=== PATIENT | female | born 1955 | race Caucasian/White ===

== ENCOUNTER 2021-07-19 06:45 | Emergency (ER) | payer MEDICARE, BC ==
--- NOTE | 2021-07-19 06:59 | EDM.PDOC ---
ED HPI GENERAL MEDICAL PROBLEM - General Chief Complaint: Back Pain or Injury Stated Complaint: FAll, low back pain Time Seen by Provider: 07/19/21 06:45 Source of Information: Reports: Patient, EMS History Limitations: Reports: Other (hard of hearing) - History of Present Illness INITIAL COMMENTS - FREE TEXT/NARRATIVE: Patient presents via EMS for slip and fall and low back pain. She is visiting from [place], [place] with her . Her daughter lives here. She was going down carpeted stairs and slipped and fell down 2-3 steps. She fell onto her buttocks and had significant pain. She has chronic low back pain, gets injections every 3 months and is due for one. EMS arrived and she was unable to ambulate. No numbness or tingling, no radiation. Pain in the low back, chronic neck pain, not anything new. Was removed via Stairchair. IV was started and she was given dilaudid 1 mg IVP and valium 5 mg IVP. On baclofen chronically. No other injuries or pain. Onset: Today Location: Reports: Back low back Pain Score (Numeric/FACES): 6 - Related Data Allergies Allergy/AdvReac Type Severity Reaction Status Date / Time aspirin Allergy Wheezing Verified 07/19/21 07:11 Home Meds: Home Meds ALPRAZolam [Xanax] 0.5 mg PO TID 07/19/21 [History] Acetaminophen 1,000 mg PO Q6HR PRN 07/19/21 [History] Acetaminophen/HYDROcodone [HYDROcodone-Acetaminophen 5-325 MG *] 1 tab PO Q6H PRN #30 each 07/19/21 [Rx] Baclofen 10 mg PO TID PRN 07/19/21 [History] DULoxetine [Cymbalta] 30 mg PO DAILY 07/19/21 [History] Furosemide [Lasix] 10 mg PO DAILY 07/19/21 [History] Loratadine [Claritin] 10 mg PO DAILY 07/19/21 [History] Losartan/Hydrochlorothiazide [Losartan-HCTZ 100-25 MG] 1 each PO DAILY 07/19/21 [History] Omeprazole 20 mg PO DAILY 07/19/21 [History] Oxybutynin Chloride [Ditropan Xl] 10 mg PO DAILY 07/19/21 [History] Potassium Chloride 10 meq PO DAILY 07/19/21 [History] Venlafaxine [Effexor XR] 150 mg PO DAILY 07/19/21 [History] Past Medical History Cardiovascular History: Reports: Hypertension Gastrointestinal History: Reports: Colon Polyp, Other (See Below) (colon polyps) Genitourinary History: Reports: Other (See Below) (overactive bladder) Musculoskeletal History: Reports: Back Pain, Chronic (chronic lumbar with SHIRLEY every 3 months), Neck Pain, Chronic (fusion cervical spine), Other (See Below) (right AC joint arthritis, right RC tendonitis/pain) Psychiatric History: Reports: Depression Endocrine/Metabolic History: Reports: Hypothyroidism - Past Surgical History HEENT Surgical History: Reports: Adenoidectomy, Cataract Surgery, Tonsillectomy GI Surgical History: Reports: Cholecystectomy, Colonoscopy Female Surgical History: Reports: Breast Biopsy, Tubal Ligation Neurological Surgical History: Reports: C-Spine (fusion) Musculoskeletal Surgical History: Reports: Knee Replacement (left) Social & Family History - Tobacco Use Tobacco Use Status *Q: Unknown Ever Used Tobacco - Alcohol Use Alcohol Use in Last Twelve Months: Yes Alcohol Use Frequency: Weekly - Recreational Drug Use Recreational Drug Use: No Drug Use in Last 12 Months: No ED ROS GENERAL - Review of Systems Review Of Systems: See Below Constitutional: Reports: No Symptoms. Denies: Fever, Chills, Fatigue HEENT: Reports: No Symptoms. Denies: Rhinitis, Sinus Problem, Throat Pain, Throat Swelling Respiratory: Reports: No Symptoms. Denies: Wheezing, Cough, Sputum Cardiovascular: Reports: No Symptoms. Denies: Chest Pain, Palpitations, Syncope Endocrine: Reports: No Symptoms. Denies: Fatigue GI/Abdominal: Reports: No Symptoms. Denies: Abdominal Pain, Diarrhea, Hematemesis, Nausea, Vomiting : Reports: No Symptoms. Denies: Dysuria, Frequency, Urinary Retention Musculoskeletal: Reports: Neck Pain (chronically, unchanged today), Back Pain (chronically, worse today, no radiation) Skin: Reports: No Symptoms Neurological: Reports: No Symptoms. Denies: Confusion, Dizziness, Pre-Existing Deficit, Seizure, Syncope, Tingling, Tremors Psychiatric: Reports: No Symptoms ED EXAM,LOWER BACK PAIN/INJURY - Physical Exam Exam: See Below Exam Limited By: Other (hard of hearing) General Appearance: Alert, Anxious, Mild Distress Eye Exam: Bilateral Eye: EOMI, Normal Inspection, PERRL Ears: Normal External Exam, Normal Canal Nose: Normal Inspection, Normal Mucosa, No Blood Throat/Mouth: Normal Inspection, Normal Lips Head: Atraumatic, Normocephalic Neck: Normal Inspection, Supple. No: Full Range of Motion (chronically) Respiratory/Chest: No Respiratory Distress, Lungs Clear, Normal Breath Sounds Cardiovascular: Normal Peripheral Pulses, Regular Rate, Rhythm GI/Abdominal: Normal Bowel Sounds, Soft, Non-Tender Back Exam: Other (pain to palpation of the lumbar spine in the midline generally. No lesions or rashes. Miniaml bilateral si joint pain.) Extremities: Other (normal range of motion of the upper extremities, no weakness or new deficit. Able to lift and move the lower extremities although moving the right leg causes back pain. chronic right foot swelling with woodiness. rukhsana pheral pulses intact bilateraly. no pain to internal or external rotation hips) Neurological: Alert, Other (answers questions appropriately, displays capacity) Skin Exam: Warm Course - Vital Signs Last Recorded V/S: Last Vital Signs Temp 36.6 C 07/19/21 06:45 Pulse 98 07/19/21 06:45 Resp 20 07/19/21 06:45 BP 132/66 07/19/21 06:45 Pulse Ox 97 07/19/21 06:45 - Orders/Labs/Meds Meds: Medications Discontinued Medications Generic Name Dose Route Start Last Admin Trade Name Jon PRN Reason Stop Dose Admin Hydrocodone Bitart/Acetaminophen 1 tab 07/19/21 08:16 Acetaminophen/Hydrocodone 325-5 Mg Tab PO 07/19/21 08:17 ONETIME ONE - Radiology Interpretation Free Text/Narrative:: Patient Name: MIGUEL SHABAZZ Date of : 1955 Procedure: MRI SPINE LUMBAR WITHOUT CONTRAST Date of Service: 09/02/201910/2019 EXAM: MRI SPINE LUMBAR WITHOUT CONTRAST INDICATION: ICD-10 M51.36 Degenerative disc disease, lumbar ICD-10 M47.816 Lumbar facet arthropathy ICD-10 M54.16 Lumbar radiculitis ICD-10 M48.062 Lumbar stenosis with neurogenic claudication Back pain or radiculopathy, > 6 wks TECHNIQUE: MRI of the lumbar spine performed without contrast. COMPARISON(S): MRI dated 10/20/2014 FINDINGS: Numbering assumes 5 lumbar type vertebral bodies. Conus terminates at a normal level. No evidence of arachnoiditis or abnormal cord signal. Alignment of the lumbar spine is stable. Fatty lesion associated with the cauda equina is stable. No marrow edema seen to suggest acute vertebral body fracture. L1-2: Mild loss of disc height and circumferential disc bulge. Mild facet degeneration. No canal stenosis or foraminal narrowing. L2-3: Moderate loss of disc height with disc desiccation and circumferential disc bulge. Moderate facet degeneration. No canal stenosis or foraminal narrowing. L3-4: Disc desiccation and mild loss of disc height with surface disc bulge. Moderate facet degeneration, left greater than right. No canal stenosis. Mild left and no right foraminal narrowing. L4-5: Disc desiccation and mild to moderate loss of disc height and circumferential disc bulge. Mild facet degeneration bilaterally. No canal stenosis. Moderate left and vaoy-gn-albceiki right foraminal narrowing. L5-S1: Mild loss of disc height. No canal stenosis. Advanced right and mild to moderate left facet degeneration. IMPRESSION: 1. Multilevel degenerative change of the lumbar spine as above. No significant canal stenosis at any level. There are areas of foraminal narrowing bilaterally as above, not significantly changed from the comparison exam. 2. Stable fatty infiltration associated with the filum terminale. Finalized by: Benson Cook DO on 09/02/2019 4:01 PM CDT Patient/Procedure Information: [facility] MRN/JESSICA: [id number] Order Number: [id number] Accession Number: [id number] Ordering Provider: FRANKLIN JACKSON Authorizing Provider: FRANKLIN JACKSON new films today Lumbar spine with mild acute appearing L2 compression fracture. interpreted by radiology Pelvis with right hip with no acute findings. interpreted by radiology - Re-Assessments/Exams Free Text/Narrative Re-Assessment/Exam: 07/19/21 07:26 Patient was already given valium and dialudid. Will get x-ray of pelvis and right hip due to very minimal pain per patient in the right groin, not reproducible 07/19/21 08:19 Patient is speaking more clearly as the medication is clearing. New l2 compression fracture. Will give hydrocodone 5/325, attempt to get up. Will need follow up with PCP for MRI and possible vertebroplasty. pain management 07/19/21 08:32 Discussion with and pateint about trying to get her comfortable, they were planing on going home today, would prefer admission to their local hospital for pain management instead of here. Discussed the need for outpatient eval, MRI and outpatient treatment if not managed. VOiced understanding. Given hydrocodone here, and script to go hoe. Able to get up to the bathroom Has baclofen already. 07/19/21 08:39 Departure - Departure Time of Disposition: 08:33 Disposition: Home, Self-Care 01 Clinical Impression: Compression fracture of L2 lumbar vertebra - Discharge Information *PRESCRIPTION DRUG MONITORING PROGRAM REVIEWED*: Yes *COPY OF PRESCRIPTION DRUG MONITORING REPORT IN PATIENT KRISTINE: No Prescriptions: Acetaminophen/HYDROcodone [HYDROcodone-Acetaminophen 5-325 MG *] 1 tab PO Q6H PRN #30 each PRN Reason: Pain Instructions: Spinal Compression Fracture, Percutaneous Vertebroplasty, Care After, [id number] Referrals: PCP,Not In Area [Primary Care Provider] - Forms: ED Department Discharge Additional Instructions: You have an acute compression fracture of Lumbar vertebrae #2. This is a structural problem and will continue to cause pain even with pain medication. If outpatient pain medication is not helping and pain is unmanageable, present to your local hospital for pain management. Contact your pain management center for possible back injection ( SHIRLEY) and see y our PCP for new MRI of the lumbar spine that will need to be completed prior to evaluation for vertebroplasty ( cement injection in the vertebrae to fix the fracture). You were given information on this procedure. Pain medication causes constipation. Take a stool softener. Continue the use of your baclofen Sepsis Event Note (ED) - Focused Exam Vital Signs: Vital Signs Temp Pulse Resp BP Pulse Ox 07/19/21 06:45 36.6 C 98 20 132/66 97
--- NOTE | 2021-07-19 08:13 | CR ---
[id number] RAD/RAD Lumbar Spine 2-3V EXAM: RAD Lumbar Spine 2-3V INDICATION: FALL, ON BUTTOCK LUMBAR PAIN. COMPARISON: None. DISCUSSION: Minor convex right curvature centered at T12-L1. Mild acute appearing L2 compression fracture. The vertebral bodies are otherwise normal in height and alignment. Mild disc degeneration throughout the lumbar spine and mild to moderate lower thoracic disc degeneration. Moderate bilateral lower lumbar facet arthropathy. IMPRESSION: 1. Mild acute appearing L2 compression fracture. Edgardo Lagunas MD 07/19/21 [id number] Thank you for allowing us to participate in the care of your patient.
--- NOTE | 2021-07-19 08:15 | CR ---
[id number] RAD/RAD Pelvis 1V W 2V Right Hip EXAM: RAD Pelvis 1V W 2V Right Hip INDICATION: FALL, ON BUTTOCK LUMBAR PAIN. COMPARISON: None. 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 Lower lumbar spondylosis. Enthesopathy off the iliac crests and trochanters bilaterally. IMPRESSION: 1. No acute findings. Edgardo Lagunas MD 07/19/21 0814 Thank you for allowing us to participate in the care of your patient.
[2021-07-19] MEDS ORDERED: Acetaminophen/HYDROcodone 325-5 MG Tab PO ONE (08:16)
[2021-07-19] MEDS ORDERED: HYDROmorphone 1 MG/ML Syringe IVPUSH ONE (08:40)
== END 2021-07-19 09:15 | disposition home or self-care (01) ==
LOC: VM.ED 06:45
DX: S32.020A Wedge compression fracture of second lumbar vertebra, initial encounter for closed fracture (principal); I10 Essential (primary) hypertension; E03.9 Hypothyroidism, unspecified; Z79.899 Other long term (current) drug therapy; Z88.8 Allergy status to other drugs, medicaments and biological substances; W10.8XXA Fall (on) (from) other stairs and steps, initial encounter
CPT/HCPCS: 72100; 99284; 99284-25; A9270-GY